=== PATIENT | male | born 1940 | race Caucasian/White ===

== ENCOUNTER 2018-01-08 20:12 | Emergency (ER) | payer OTHER, MEDICARE ==
[~2018-01-08] VITALS: Ht 170.2 cm; Wt 79.4 kg
[2018-01-08 20:24] VITALS: BP 135/75
[2018-01-09] MEDS ORDERED: NAPROSYN500 M1 PO (08:44)
[2018-01-10] MEDS ORDERED: ATORVASTATIN CA10 M1 PO (17:05)
[2018-01-10] MEDS ORDERED: BENICAR40 M1 PO (17:05)
[2018-01-10] MEDS ORDERED: AMLODIPINE BESY10 M1 PO (17:05)
[2018-01-10] MEDS ORDERED: OMEPRAZOLE40 M1 PO (17:05)
[2018-01-10] MEDS ORDERED: ASPIRIN EC81 M1 PO (17:06)
[2018-01-10] MEDS ORDERED: DELTASONE20 MG PO (19:04)
== END 2018-01-08 20:33 | disposition admitted as inpatient to this hospital (09) ==
LOC: ERH 20:12
DX: M79.89 Other specified soft tissue disorders (principal)

== ENCOUNTER 2018-01-09 06:47 | Emergency (ER) | payer OTHER, MEDICARE ==
[~2018-01-09] VITALS: Ht 165.1 cm; Wt 77.1 kg
--- NOTE | 2018-01-09 07:17 | ED HAND/WRIST INJURY COMPLAINT ---
History of Present Illness General Chief Complaint: Hand or Wrist Injury Stated Complaint: PT HERE LASTNIGHT,LONG MAIRA LEFT C/O RT HAND PAIN Source: patient, family Exam Limitations: no limitations Vital Signs & Intake/Output Vital Signs & Intake/Output Vital Signs Date Time Temp Pulse Resp B/P B/P Pulse O2 O2 Flow FiO2 Mean Ox Delivery Rate 01/09 0842 97.1 86 18 128/74 97 Room Air 01/09 0739 97 Room Air 01/09 0701 96.3 88 16 130/74 96 Allergies Coded Allergies: Sulfa (Sulfonamide Antibiotics) (Intermediate, BODY SWELLS UP 01/09/18) Reconcile Medications Naproxen (Naprosyn) 500 MG TABLET 1 TAB PO BID PRN ARTHRITIS Triage Note: PT TO ED C/O RIGHT HAND PAIN SINCE YESTERDAY. DENIES OBVIOUS INJURY. HAS TRIED ALEVE WITH NO RELIEF. +CMS, SWELLING NOTED. DECLINING MEDS IN TRIAGE. Triage Nurses Notes Reviewed? yes HPI: 77-year-old male with a history of hypertension and hyperlipidemia presented to the emergency department with pain and swelling of his right hand. The symptoms started Monday morning when the patient woke up, when he noticed stiffness in his right hand that gradually worsened throughout the day. He presented last night to the emergency department as well, but returned home due to the wait time. The pain is worst over the metacarpophalangeal joint of the third digit, and extends up to his right elbow along the dorsal/extensor surface of his forearm. The swelling follows a similar pattern. He denies noticing any sensation of warmth in the joint, denies fever/chills, denies history of recent trauma to the joint, fingers or hand. The patient has no history of gout and denies any pain, tenderness, swelling or warmth in the joints of his feet, but reports an unclear history of "arthritis", that is stiffness of the joints in his hands occasionally. (Mike Telles MD) Past History Travel History Traveled to [place] past 21 day No Medical History Any Pertinent Medical History? see below for history Cardiovascular: hypertension, HIGH CHOLESTEROL Surgical History Surgical History: non-contributory Psychosocial History What is your primary language [place] Tobacco Use: Quit >30 days ago ETOH Use: denies use Illicit Drug Use: denies illicit drug use Family History Hx Contributory? No (Mike Telles MD) Review of Systems Review of Systems Constitutional: Denies: chills, fever, weakness. GI: Denies: abdominal pain, nausea, vomiting. Musculoskeletal: Reports: joint pain, joint swelling. Denies: gout. Neurological/Psychological: Denies: headache, numbness, tingling. (Elfego GALEANO,Mike) Review of Systems Respiratory: Reports: no symptoms. Cardiovascular: Reports: no symptoms. Immunologic/Allergic: Reports: no symptoms. (Chris GALEANO,Vance Tirado) Physical Exam Physical Exam General Appearance: well developed/nourished, no apparent distress, alert, awake Forearm Right: swelling Wrist Left: normal range of motion, normal inspection Wrist Right: swelling, limited range of motion Hand Left: normal inspection, normal range of motion Hand Right: limited range of motion, swelling, tender, 3rd finger (WARMTH ON 3RD METACARPAL JOINT) (Elfego GALEANO,Mike) Physical Exam Eyes: Bilateral: PERRL, EOMI. Neck: normal inspection, supple, full range of motion Cardiovascular/Respiratory: normal breath sounds, normal peripheral pulses, regular rate/rhythm Neurologic/Tendon: normal sensation, normal motor functions, normal tendon functions Lymphatic: no anterior cervical dani (Chris GALEANO,Vance Tirado) Progress Differential Diagnosis: contusion, fracture, gout, tenosynovitis Plan of Care: Orders Procedure Date/time Status Durable Medical Equipment 01/09 0836 Active URIC ACID 01/09 743 Complete Laboratory Tests 01/09/18 0756: Uric Acid 5.2 Diagnostic Imaging: Viewed by Me: Radiology Read. Discussed w/RAD: Radiology Read. 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 Tendinitis third digit. COMPARISON: No relevant prior imaging. TECHNIQUE: PA, lateral, and oblique views of the right hand. FINDINGS: There is an ill-defined focus of amorphous calcification located along the radial surface of the third metacarpophalangeal joint no evidence of acute fracture or dislocation. Mild narrowing of the interphalangeal joint spaces. No worrisome erosive osseous lesions. Proximal and distal carpal rows are grossly intact. Neutral ulnar variance. Soft tissues are unremarkable. IMPRESSION: Ill-defined amorphous calcification located along the radial surface of the third metacarpophalangeal joint presumably represents a manifestation of calcific tendinosis. Mild degenerative joint space narrowing is visualized at the interphalangeal joints of multiple digits. No acute fracture and no dislocation. DICTATED BY: Sang Saldana MD DATE/TIME DICTATED:01/09/18809 [employer] DIRECTOR:SANDIP DATE/TIME TRANSCRIBED:01/09/18809 CONFIDENTIAL, DO NOT COPY WITHOUT APPROPRIATE AUTHORIZATION. <Electronically signed in Other Vendor System> SIGNED BY: Sang Saldana MD 01/09/18817 (Vance Perez MD) Departure Departure Disposition: HOME OR SELF CARE Condition: Stable Clinical Impression Primary Impression: Arthritis Referrals: Yolanda GALEANO,Ashutosh Samuel (PCP/Family) Additional Instructions: Wear this splint for comfort, take Naproxen as needed for pain, do not take it more than twice per day. Please follow-up with your primary care physician, and return if the symptoms worsen. Departure Forms: Customer Survey General Discharge Information Prescriptions: Current Visit Scripts Naproxen (Naprosyn) 1 TAB PO BID PRN ARTHRITIS #60 TAB (Elfego GALEANO,Mike) Resident Co-Sign Statement Statement: ED Attending supervision documentation- [X] I saw and evaluated the patient. I have also reviewed all the pertinent lab results and diagnostic results. I agree with the findings and the plan of care as documented in the Resident's documentation. [X] I have reviewed the ED Record and agree with the Resident's documentation. [] Additions or exceptions (if any) to the Resident's note and plan are summarized below: [] (Chris GALEANO,Vance Tirado) Procedures Splinting Location: R wrist Manual Alignment Performed: No Pre-Made Type: velcro Splint: wrist Splint Applied By: splint applied by other Pre-Proc Neuro Vasc Exam: normal Post-Proc Neuro Vasc Exam: normal (Mike Telles MD)
--- NOTE | 2018-01-09 08:18 | RADIOLOGY REPORT ---
EXAMINATION: XR HAND, RIGHT CLINICAL INFORMATION: Swelling and tenderness of the right hand. Tendinitis third digit. COMPARISON: No relevant prior imaging. TECHNIQUE: PA, lateral, and oblique views of the right hand. FINDINGS: There is an ill-defined focus of amorphous calcification located along the radial surface of the third metacarpophalangeal joint no evidence of acute fracture or dislocation. Mild narrowing of the interphalangeal joint spaces. No worrisome erosive osseous lesions. Proximal and distal carpal rows are grossly intact. Neutral ulnar variance. Soft tissues are unremarkable. IMPRESSION: Ill-defined amorphous calcification located along the radial surface of the third metacarpophalangeal joint presumably represents a manifestation of calcific tendinosis. Mild degenerative joint space narrowing is visualized at the interphalangeal joints of multiple digits. No acute fracture and no dislocation.
[2018-01-09 08:42] VITALS: BP 128/74
[2018-01-09] MEDS ORDERED: NAPROSYN500 M1 PO (08:44)
[2018-01-10] MEDS ORDERED: OMEPRAZOLE40 M1 PO (17:05)
[2018-01-10] MEDS ORDERED: ATORVASTATIN CA10 M1 PO (17:05)
[2018-01-10] MEDS ORDERED: BENICAR40 M1 PO (17:05)
[2018-01-10] MEDS ORDERED: AMLODIPINE BESY10 M1 PO (17:05)
[2018-01-10] MEDS ORDERED: ASPIRIN EC81 M1 PO (17:06)
[2018-01-10] MEDS ORDERED: DELTASONE20 MG PO (19:04)
== END 2018-01-09 08:52 ==
LOC: ERH 06:47
DX: M19.90 Unspecified osteoarthritis, unspecified site (principal); M79.641 Pain in right hand; I10 Essential (primary) hypertension; E78.00 Pure hypercholesterolemia, unspecified; Z87.891 Personal history of nicotine dependence; E78.4 Other hyperlipidemia
CPT/HCPCS: 73120-RT